=== PATIENT | female | born 1945 | race Caucasian/White ===

== ENCOUNTER 2016-10-09 14:08 | Emergency (ER) | payer MEDICARE, OTHER ==
[2016-10-09 14:16] VITALS: BP 147/77
--- NOTE | 2016-10-09 15:09 | UC ---
Skin Complaint HPI - HPI Summary HPI Summary: 70 yo F states she was holding on to a fiberglass wand last pm and got fiberglass splinters in her hand and they are painful. She called her doctor and was advised to come in so the splinters could be removed and not become infected. - History of Current Complaint Chief Complaint: UCForeignBody Time Seen by Provider: 10/09/16 14:25 Stated Complaint: RIGHT HAND SKIN CONCERN Hx Obtained From: Patient Onset/Duration: Sudden Onset, Lasting Hours, Still Present Skin Exposure Onset/Duration: Hours Ago Timing: Constant Onset Severity: Moderate Current Severity: Moderate Pain Intensity: 0 Pain Scale Used: 0-10 Numeric Location: Discrete - multiple spots of the palm of her right hand, Hand (Right) Character: Raised, Painful Aggravating: Touch Alleviating: Nothing Associated Signs & Symptoms: Positive: Tenderness. Negative: Red Streaks - Allergy/Home Medications Allergies/Adverse Reactions: Allergies Allergy/AdvReac Type Severity Reaction Status Date / Time No Known Allergies Allergy Verified 10/09/16 14:16 Home Medications: Home Medications Misc Natural Products [Pycnogenol Complex] 1 tab PO DAILY 10/09/16 [History Confirmed 10/09/16] Tumeric 1 tab PO DAILY 10/09/16 [History Confirmed 10/09/16] Review of Systems Constitutional: Negative Skin: Other - multiple splinter FB's Eyes: Negative ENT: Negative Respiratory: Negative Cardiovascular: Negative Gastrointestinal: Negative Genitourinary: Negative Motor: Negative Neurovascular: Negative Musculoskeletal: Negative Neurological: Negative Psychological: Negative All Other Systems Reviewed And Are Negative: Yes PMH/Surg Hx/FS Hx/Imm Hx Previously Healthy: No - glaucoma, osteoporosis - Surgical History Surgical History: Yes Surgery Procedure, Year, and Place: HYSTERECTOMY 2013. BREAST BIOPSIES - Family History Known Family History: Positive: Cardiac Disease - Social History Lives: Alone Alcohol Use: None Substance Use Type: None Smoking Status (MU): Never Smoked Tobacco - Immunization History Most Recent Influenza Vaccination: no Most Recent Tetanus Shot: 2004 Physical Exam Triage Information Reviewed: Yes Appearance: Well-Appearing, No Pain Distress, Well-Nourished Vital Signs: Initial Vital Signs Temp 98.4 F 10/09/16 14:12 Pulse 75 10/09/16 14:12 Resp 16 10/09/16 14:12 BP 147/77 10/09/16 14:12 Pulse Ox 100 09/04/17 14:12 Vital Signs Reviewed: Yes Eyes: Positive: Conjunctiva Clear ENT: Positive: Normal ENT inspection Neck: Positive: Supple Respiratory: Positive: No respiratory distress Cardiovascular: Positive: RRR, Brisk Capillary Refill Musculoskeletal: Positive: Strength Intact, ROM Intact Psychological Exam: Normal Skin: Positive: significant lesion(s) - multiple fiberglass splinters in palmar surface right hand Course/Dx - Course Course Of Treatment: PROCEDURE: SPLINTER FORCEPS USED TO REMOVE MULTIPLE SPLINTERS, AT LEAST EIGHT SPLINTERS FROM PALMAR SURFACE OF HAND AND FINGERS WITH STERILE FORCEPS. NO ANESTHESIA. PT TOLERATED PROCEDURE WELL. - Differential Diagnoses - Skin Complaint Differential Diagnoses: Cellulitis, Foreign Body, Local Allergic Reaction - Diagnoses Provider Diagnoses: FIBERGLASS SPLINTER FOREIGN BODIES IN HAND REMOVED Discharge - Discharge Plan Condition: Stable Disposition: HOME Prescriptions: Mupirocin 2% OINT* [Bactroban 2 % Oint*] 1 applic TOPICAL BID #1 tube Patient Education Materials: Soft Tissue Foreign Body (ED) Referrals: Mireya Corado MD [Primary Care Provider] - 2 Days Additional Instructions: We tried to remove the fiberglass foreign bodies using a forceps, medical tape, and alcohol. We have also prescribed antibiotic ointment, mupirocin, that you may use to try to prevent infection. Your blood pressure was elevated today. Please have this rechecked with your doctor within one month. Return to urgent care if you have any new or worsening symptoms.
== END 2016-10-09 16:10 | disposition home or self-care (01) ==
LOC: UCCORT 14:08
DX: S60.551A Superficial foreign body of right hand, initial encounter (principal); W45.8XXA Other foreign body or object entering through skin, initial encounter
CPT/HCPCS: 99212; G0463